=== PATIENT | female | born 1940 | race Caucasian/White ===

== ENCOUNTER → 2016-05-16 | Outpatient (CLI) | payer OTHER, BC | LOC: HYPER 05-11 15:51 | DX: L89.620 Pressure ulcer of left heel, unstageable (principal); C44.90 Unspecified malignant neoplasm of skin, unspecified; Z51.89 Encounter for other specified aftercare; L08.9 Local infection of the skin and subcutaneous tissue, unspecified; G35 Multiple sclerosis; Z87.891 Personal history of nicotine dependence ==